=== PATIENT | female | born 1975 ===

== ENCOUNTER 2025-10-05 10:00 | Day surgery (SDC) | payer OTHER ==
[2025-09-22 08:37] LABS: BASO % 0.5 % (0.1-1.2); EOS # 0.17 (0.04-0.54); EOS % 1.7 % (0.7-7.0); LYMPH # 1.74 (1.18-3.74); LYMPH % 17.3 % (19.3-53.1); MONO # 0.67 (0.24-0.82); MONO % 6.7 % (4.7-12.5); NEUT # 7.38 (1.56-6.13); NEUT % 73.3 % (34.0-71.1); RED CELL DISTRIBUTION WIDTH 14.0 % (11.6-14.4)
[2025-09-22 08:42] LABS: URINE APPEARANCE Clear; URINE BILIRRUBIN Negative (NEGATIVE); URINE BLOOD Negative; URINE COLOR Yellow; URINE GLUCOSE Negative (NEGATIVE); URINE KETONE Negative (NEGATIVE); URINE LEUKOCYTE Trace; URINE NITRATE Negative; URINE PROTEIN Negative (NEGATIVE); URINE UROBILINOGEN 0.2 E.U./dl
[2025-09-22 08:47] LABS: URINE BACTERIA 185.9 uL (0.0-1933); URINE EPITHELIAL CELLS 51.3 uL (0.0-38.8); URINE RBC 13.0 uL (0.0-20.8); URINE WBC 27.8 uL (0.0-23.2)
[2025-09-22 08:52] LABS: URINE CAST 0.00 uL (0.0-1.40)
[2025-09-22 09:00] LABS: INR 0.98
[2025-09-22 09:08] VITALS: BP 121/80
[2025-09-22 09:21] LABS: ALT/SGPT 157.0 U/L (12-78); AST/SGOT 40.0 U/L (15-37); BILIRUBIN TOTAL 0.51 mg/dL (0.3-1.2); BUN CREA RATIO 20.0 (7.0-25.0); CREATININE SERUM 0.86 mg/dL (0.55-1.02); GFR 70.43; GLOBULINA 4.1 G/DL (2.4-3.5); GLUCOSE FASTING 89.0 mg/dL (65-100); OSMOLALITY SERUM 279.0 MOSM/KG (275-295)
[~2025-10-05] VITALS: Ht 157.5 cm; Wt 86.2 kg
[~2025-10-05 10:00] MED LIST: CLIMARA1 EAC2 TD; HORIZANT300 MG PO; NORETHIN-ETH E1 EACH PO; TOPROL XL25 M1 PO
[2025-10-05] MEDS ORDERED: POVIDONE-IODINE 118 ML BOTT TOP ONE (10:43)
[2025-10-05] MEDS ORDERED: SUGAMMADEX SODIUM 200 MG/2 ML VIAL IV ONE (12:45)
[2025-10-05] MEDS ORDERED: RINGERS SOLUTION,LACTATED 1,000 ML IV SCH (16:15)
[2025-10-05] MEDS ORDERED: KETOROLAC TROMETHAMINE 30 MG VIAL IV ONE (16:15)
== END 2025-10-05 17:15 | disposition home or self-care (01) ==
LOC: CIR.AMB 10:00
PROVIDERS: ATTEND Student in an Organized Health Care Education/Training Program
DX: D25.0 Submucous leiomyoma of uterus (principal); N93.8 Other specified abnormal uterine and vaginal bleeding